=== PATIENT | male | born 1965 | race Caucasian/White ===

== ENCOUNTER 2017-08-22 12:32 | Emergency (ER) | payer BC ==
--- NOTE | 2017-08-22 13:27 | EDM.PDOC ---
ED HPI GENERAL MEDICAL PROBLEM - General Chief Complaint: Genitourinary Problem Stated Complaint: CANNOT PASS URINE Time Seen by Provider: 08/22/17 13:25 Source of Information: Reports: Patient History Limitations: Reports: No Limitations - History of Present Illness INITIAL COMMENTS - FREE TEXT/NARRATIVE: Burning on urination, freq urgency for past 3 days. No hx uti. Empties bladder ok - Related Data Allergies Allergy/AdvReac Type Severity Reaction Status Date / Time No Known Allergies Allergy Verified 08/22/17 12:56 Home Meds: Home Meds NK [No Known Home Meds] 08/22/17 [History] Past Medical History Musculoskeletal History: Reports: Fracture - Past Surgical History GI Surgical History: Reports: Appendectomy Social & Family History - Tobacco Use Smoking Status *Q: Never Smoker - Caffeine Use Caffeine Use: Reports: Coffee - Recreational Drug Use Recreational Drug Use: No ED ROS GENERAL - Review of Systems Review Of Systems: ROS reveals no pertinent complaints other than HPI. ED EXAM, GI/ABD - Physical Exam Exam: See Below Exam Limited By: No Limitations General Appearance: Alert, WD/WN, No Apparent Distress Respiratory/Chest: Lungs Clear Cardiovascular: Regular Rate, Rhythm GI/Abdominal Exam: Normal Bowel Sounds, Soft, Non-Tender, Other (bladder non- distended) Course - Vital Signs Last Recorded V/S: Last Vital Signs Temp 37.2 C 08/22/17 12:59 Pulse 90 08/22/17 12:59 Resp 18 08/22/17 12:59 BP 128/85 08/22/17 12:59 Pulse Ox 93 L 08/22/17 12:59 - Orders/Labs/Meds Orders: Active Orders 24 hr Category Date Time Status UA W/MICROSCOPIC [URIN] Stat Lab 08/22/17 12:49 Ordered Labs: Laboratory Tests 08/22/17 Range/Units 12:49 Urine Color Yellow Urine Appearance Turbid Urine pH 5.0 (4.5-8.0) Ur Specific [place] 1.020 (1.008-1.030) Urine Protein 30 H (NEGATIVE) mg/dL Urine Glucose (UA) Normal (NEGATIVE) mg/dL Urine Ketones Negative (NEGATIVE) mg/dL Urine Occult Blood Large (NEGATIVE) Urine Nitrite Positive H (NEGAITVE) Urine Bilirubin Small (NEGATIVE) Urine Urobilinogen 1 (NORMAL) mg/dL Ur Leukocyte Esterase Large (NEGATIVE) Urine RBC 10-20 H (0-5) Urine WBC Packed H (0-5) Ur Epithelial Cells Rare Amorphous Sediment Not seen Urine Bacteria Many Urine Mucus Not seen Departure - Departure Time of Disposition: 13:26 Disposition: Home, Self-Care 01 Condition: Fair Clinical Impression: UTI, Urinary tract infectious disease - Discharge Information Referrals: PCP,None [Primary Care Provider] - Additional Instructions: Take Bactrim DS 1 tab twice daily for 5 days. Be sure to drink a lot of water. See your doctor afterwards to be sure the infection and blood are both cleared up - My Orders Last 24 Hours: My Active Orders 08/22/17 12:49 UA W/MICROSCOPIC [URIN] Stat - Assessment/Plan Last 24 Hours: My Active Orders 08/22/17 12:49 UA W/MICROSCOPIC [URIN] Stat
== END 2017-08-22 13:39 | disposition home or self-care (01) ==
LOC: JP.ED 12:32
DX: N39.0 Urinary tract infection, site not specified (principal)
CPT/HCPCS: 81001; 99284